=== PATIENT | female | born 1965 | race Caucasian/White ===

== ENCOUNTER 2023-10-09 14:01 | Day surgery (SDC) | payer OTHER, SELFPAY ==
[2023-10-09] VITALS (18 sets, daily range): BP systolic 96–159; BP diastolic 48–101; BMI 27.7
--- NOTE | 2023-10-09 07:37 | ED.GENMED ---
History of Present Illness
General
Chief Complaint: Abdominal Pain
Source: patient and spouse
Exam Limitations: none
Time Seen by Provider: 10/09/23 07:28
Travel History
Have you had any contact with someone who has COVID-19?: No
Do you have any symptoms of coronavirus? Fever > 100 degrees, chills, cough, shortness of breath, sore throat, loss of taste or smell, muscle aches, or headache?: No
History of Present Illness
History of Present Illness:
58-year-old female complaining of relatively sudden onset of upper abdominal pain with radiation to the mid back. Started yesterday evening. Patient feels like it may have started after doing some lifting. She is concerned for a hiatal hernia
issue. She is never had pain like this before. Some nausea. No fever no chest pain or shortness of breath. Symptoms are moderate in nature continuous.
Past History
Past History
ED Past Medical History: HTN and Seizures; Negative Arrthythmia, Asthma, CAD, Cancer, CHF, COPD, CVA, GERD or Hypercholesterolemia
ED Past Surgical History: Gynecological and Other (Hernia surgery x2); Negative Cardiac
Patient has exhibited threatening behavior?: No
Social History
Tobacco: Smoker
Alcohol: None
Drug: None
Personal:
Living: with family
Employment: Employed
Family History
Family History: Hypertension and CAD; Negative Sudden
Review of Systems
Review of Systems
All Other Systems: Not applicable
Constitutional: Denies fever
Respiratory: Reports no symptoms
Cardiac: Reports no symptoms
Phy Exam
Physical Exam
Physical Exam:
GENERAL: Alert and oriented in no apparent distress
EYE: Orbits normal.
NECK: Supple
CARDIAC: Regular rate and rhythm without any obvious murmurs.
LUNGS: Clear breath sounds,normal
ABDOMEN: Soft, bowel sounds present. Mild epigastric tenderness mild to moderate right upper quadrant tenderness and mild right lower quadrant tenderness. No CVA tenderness. No rebound or guarding no mass or hernia
NEUROLOGICAL: Alert and oriented , grossly non-focal
SKIN: Warm and dry, no rash or lesion, no discoloration, skin intact.
MUSCULOSKELETAL: No edema,no deformity.Good color
PSYCH: Normal and appropriate interaction.
Course
Orders/Labs/Results
Orders:
Orders
10/09/23 07:08
EKG [Electrocardiogram (*1)] Urgent
Reason for Study: Abdominal Pain
EKG- Treatment ONCE
10/09/23 07:35
CT Abd/pel W Iv And Oral Contr Urgent
Comment:
Reason For Exam: Epigastric right upper quadrant and right lower qu
Cardiac Monitoring- Treatment ONCE
IV Insert/Care/Rem.- Treatment PRN
0.9% Sodium Chloride 1000 ml [Nss] 1,000 ml IV BOLUS
HYDROmorphone [Dilaudid] 0.5 mg IV NOW STA
Iohexol [Omnipaque] See Protocol PO NOW STA
Ondansetron Injectable [Zofran] 4 mg IV NOW STA
Pulse Ox/cont/shift [RESP] Stat
Quantity: 1
10/09/23 07:36
US Abdomen Complete/Upper Urgent
Reason For Exam: Right upper quadrant abdominal pain. Evaluate gal
10/09/23 08:02
Complete Blood Count/With Diff Urgent
Comprehensive Metabolic Panel Urgent
Lipase Urgent
Troponin I Urgent
10/09/23 Lunch
NPO
Allow oral meds: Yes
Allow clear liquids: No
10/09/23 10:15
HYDROmorphone [Dilaudid] 0.5 mg IV NOW STA
10/09/23 10:16
HYDROmorphone [Dilaudid] 0.5 mg .ROUTE .STK-MED ONE
HYDROmorphone [Dilaudid] 0.5 mg .ROUTE .STK-MED ONE
10/09/23 13:05
Admit Patient As Directed
Co-Sign Provider:
Level of Care: Post Proc/Surg Recovery
Assign to:: Medical/Surgical
Physician / Group: [facility]/General surgery
Diagnosis: Appendicitis
Reason for Overnight Stay: Standard of Care
Code Status As Directed
Resuscitation Status: Full Code
Acetaminophen [Tylenol] 650 mg PO Q4HPRN PRN
HYDROmorphone [Dilaudid] 1 mg IV Q4HPRN PRN
Ketorolac [Toradol] 10 mg IV Q6HPRN PRN
Ondansetron Injectable [Zofran] 4 mg IV Q6HPRN PRN
Activity As Directed
Activity Level: Out of Bed-Early Mobility
Intake/ Output As Directed
Frequency: Per unit guidelines
Pneumatic Compression Sleeves As Directed
Type: Knee high
Vital Signs As Directed
Frequency: Per unit guidelines
DX Deep Vein Thrombosis Video Routine
10/09/23 13:15
0.9% Sodium Chloride 1000 ml [Nss] 1,000 ml IV 80 mls/hr
10/09/23 14:00
Piperacillin/Tazo 3.375 Gram [Zosyn] 3.375 gram in 50 ml IV Q6H
Abnormal Lab Results
10/09/23
08:02
WBC 15.6 H 10^3/uL
(4.8-10.8)
Abs Immat Gran (auto) 0.1 H 10^3/uL
(0-0.05)
Absolute Neuts (auto) 13.1 H 10^3/uL
(1.4-6.5)
Absolute Monos (auto) 0.9 H 10^3/uL
(0.1-0.6)
Neutrophils % 83.7 H %
(42.2-75.2)
Lymphocytes % 9.7 L %
(20.5-51.1)
BUN 27 H mg/dl
(7-17)
Glucose 151 H mg/dl
(70-99)
Alkaline Phosphatase 139 H U/L
(38-126)
10/09/23 08:02
10/09/23 08:02
Vital Signs
Initial and Last Documented VS:
Initial Vital Signs
Temp Pulse Resp BP Pulse Ox
98.4 F 110 18 159/101 96
10/09/23 07:01 10/09/23 07:01 10/09/23 07:01 10/09/23 07:01 10/09/23 07:01
Last Documented Vital Signs
Temp Pulse Resp BP Pulse Ox
98.4 F 96 18 125/79 98
10/09/23 07:01 10/09/23 13:30 10/09/23 12:03 10/09/23 13:00 10/09/23 13:43
MDM/Problems Addressed
Differential Diagnosis Includes:
Relatively sudden onset of upper abdominal pain to the back. Differential would include gastritis/ulcer/gallbladder. There is some right lower quadrant tenderness. Appendicitis is also in the differential. Workup in progress
*Radiology
Radiology exam reviewed: radiology read reviewed (Appendicitis/colitis)
*Pulse Oximetry
Patient hypoxic: no
*Critical Care Note
Total Time (30-74mins, 75-104mins- exclusive of procedures): Not Applicable
Data Reviewed
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 Within normal limits. Ultrasound CT last year all negative)
ED Attending Note
-
Portions of this chart may have been created with voice recognition software.� Occasional wrong word or��sound alike� substitutions may have occurred due to the inherent limitations of voice recognition software.
Discharge Plan
Departure
Patient Disposition: Admit
Date of Disposition: 10/09/23
Time of Disposition: 12:04
Presentation/result/management discussed w/ accepting MD/DO: Surgery
Discharge Problem:
Appendicitis, Colitis
Interventions
Interventions:
*Risk Screen - Suicide Last Done: 10/09/23 08:06
*General Assessment Last Done: 10/09/23 08:06
*Neglect/Abuse Screening Last Done: 10/09/23 08:06
*ED COVID-19 Vaccine History Last Done: 10/09/23 07:04
*Nursing Disposition Last Done: 10/09/23 13:54
WF-Avxhak-Qdsveqnsbd Assessment Last Done: 10/09/23 08:07
Discharge Date and Time
Discharge Date/Time: 10/09/23 13:54
[2023-10-09] MEDS: NSS 1000 IV ×2 (08:04→13:25)
[2023-10-09] MEDS: ZOFRAN 4 MG IV ×2 (08:05→13:41)
[2023-10-09 08:08] LABS: % Basophils 0.4 % (0-2); % Eosinophils 0.2 % (0-6); % Immature Granulocytes 0.4 % (0-0.5); % Lymphocytes 9.7 % (20.5-51.1); % Monocytes 5.6 % (1.7-9.3); % Neutrophils 83.7 % (42.2-75.2); Absolute Basophils 0.1 10^3/uL (0-0.2); Absolute Immature Granulocytes 0.1 10^3/uL (0-0.05); Absolute Lymphocytes 1.5 10^3/uL (1.2-3.4); Absolute Monocytes 0.9 10^3/uL (0.1-0.6); Absolute Neutrophils 13.1 10^3/uL (1.4-6.5); Hematocrit 44.4 % (37.0-47.0); Hemoglobin 15.2 g/dL (12.0-16.0); Mean Corp Hgb Conc. 34.2 g/dL (33.0-37.0); Mean Corpuscular Hgb 29.9 pg (27.0-31.0); Mean Corpuscular Volume 87.2 fL (81.0-99.0); Mean Platelet Volume 10.4 fL (7.4-10.4); Nucleated Red Blood Cells % 0 %; Platelet Count 211 10^3/uL (130-400); Red Blood Cell Count 5.09 10^6/uL (4.20-5.40); Red Cell Dist. Width 13.2 % (11.5-14.5); White Blood Cell Count 15.6 10^3/uL (4.8-10.8)
[2023-10-09] MEDS: DILAUDID 0.5 MG IV ×2 (08:10→10:19)
[2023-10-09] MEDS: OMNIPAQUE 50 ML PO (08:14)
[2023-10-09 08:25] LABS: ALT (SGPT) 32 U/L (0-35); AST (SGOT) 26 U/L (14-36); Albumin 4.4 g/dl (3.5-5.0); Alkaline Phosphatase 139 U/L (38-126); Blood Urea Nitrogen 27 mg/dl (7-17); Carbon Dioxide 29 mmol/L (22-30); Chloride 104 mmol/L (98-107); Estimated Creatinine Clearance 76 ml/min; Glucose 151 mg/dl (70-99); Lipase 69 U/L (23-300); Potassium 3.7 mmol/L (3.5-5.1); Sodium 143 mmol/L (135-145); Total Bilirubin 0.7 mg/dl (0.2-1.3); Total Protein 7.2 g/dl (6.3-8.2); eGFR > 60.00
[2023-10-09 08:31] LABS: Troponin I < 0.012 ng/ml
--- NOTE | 2023-10-09 12:45 | HPS.HSE ---
Addendum entered and electronically signed by Philip Coelho MD 10/09/23 14:49:
Patient seen and examined. Agree with assessment plan as documented below.
Patient is a 58 yo F with a PMH notable for seizures, GERD, HTN, s/p , s/p partial hysterectomy with vaginal sling in 2002 c/b incisional hernia s/p open ventral incisional hernia repair with focal patch by Dr. Field in 2002, s/p bladder
sling procedure. Ms. Julian presents with 24 hours of generalized and RLQ abdominal pain. She states that her symptoms began yesterday. She describes a general discomfort within her abdomen primarily localized to the umbilicus, though worse in the
RLQ with palpation. Associated nausea and vomiting. No fevers, reports chills. Issues with constipation, denies any bloody or loose stools. Family history notable for colon cancer, last colonoscopy in 2010 notable for diverticulosis, and 3
hyperplastic polyps within the rectum.
Gen: NAD
Abd: soft, tender to palpation in RLQ, mild distension, non-peritoneal, prior incisions well healed
Labs and imaging were reviewed
Patient is a 58 yo F p/w acute appendicitis
The natural history and pathophysiology of appendicitis was discussed. Labs and CT scan imaging were reviewed. Options for management including medical management with antibiotics versus surgical management with appendectomy were considered and
discussed. The pros and cons of both approaches was discussed. Specifically, we discussed failure of medical management and future episodes of appendicitis versus surgical risks. We discussed that she has had increased risk for failure of medical
management given her appendicoliths. Recommend and plan for appendectomy.
Plan for a laparoscopic appendectomy. The procedure itself, as well as the risks, benefits, and alternatives was discussed. Specifically, we discussed the risks of bleeding, infection, injury to surrounding structures (bowel, bladder), staple line
leak, need for open procedure. Typical postprocedural recovery was discussed. All questions answered. Consent signed.
-- Laparoscopic appendectomy
-- NPO, IVF
-- Abx: Zosyn
Original Note:
Family Physician
-
Family Physician: Len Rg
Chief Complaint
-
abdominal pain
History of Present Illness
58 yo female with h/o , HELIO with vaginal sling, bladder sling for recurrent prolapse, incisional hernia repair with mesh, BL inguinal hernia repairs and seizures who presents with abdominal pain which began acutely yesterday evening
periumbilically with nausea and vomiting. Pain is generalized throughout and radiating into her back. On exam, she is significantly focally tender to the RLQ with pain in the RLQ when all other mathur are palpated. She denies active nausea and is
somewhat more comfortable after receiving Dilaudid although she notes pain is still present. She denies fevers but has had some chills. She denies diarrhea. Last BM was 2 days ago.
Medical History
Past Medical History
Past Medical History: Reports GERD, HTN, Seizures and Other (hiatal hernia)
Past Surgical History: Reports , Gynocological (HELIO with vaginal sling 2002), Urological (bladder sling (for recurrence after 2002 procedure)) and Other (BL inguinal hernia repairs, Incisional hernia repair 2002 along Pfannenstiel incision
(Kugel patch))
Additional Past Surgical History:
Last colonoscopy 2011 years with polyps, diverticulosis
Social History
Tobacco: Former Smoker
Alcohol: None
Personal:
Living: With Family
Family History
Family History: Cancer (father)
Allergies / Home Medications
Allergies reflects when Allergies were last updated in [facility].
Home Medications with original date entered in [facility]
Allergy/Medication List:
Patient Allergies
Allergy/AdvReac Type Severity Reaction Status Date / Time
adhesive tape Allergy Rash Verified 10/09/23 07:53
Benzodiazepines Allergy Unknown Verified 10/09/23 07:53
clonazepam Allergy Pharmacy Verified 10/09/23 07:53
to Review
Hydantoins Allergy Unknown Verified 10/09/23 07:53
phenytoin Allergy Rash Verified 10/09/23 07:53
Sulfa (Sulfonamide Allergy Rash Verified 10/09/23 07:53
Antibiotics)
sulfasalazine Allergy Unknown Verified 10/09/23 07:53
�Medication �Instructions �Recorded �Confirmed �Type
atorvastatin 10 mg tablet 10 mg PO DAILY 10/09/23 10/09/23 History
calcium carbonate (Tums) 200 mg PO QID PRN gi upset 10/09/23 10/09/23 History
hydrochlorothiazide 25 mg tablet 25 mg PO DAILY 10/09/23 10/09/23 History
metoprolol tartrate 25 mg tablet 25 mg PO BID 10/09/23 10/09/23 History
multivitamin 1 tab PO DAILY 10/09/23 10/09/23 History
omeprazole 20 mg capsule,delayed 20 mg PO BID 10/09/23 10/09/23 History
release
topiramate 200 mg capsule,extended 200 mg PO DAILY 10/09/23 10/09/23 History
release 24 hr
Review of Systems
-
History Source: Patient
A 12 point ROS was completed and negative except as noted: Yes
Physical Exam
Vital Signs
Vital Signs
Temp Pulse Resp BP Pulse Ox
98.4 F 88 18 118/84 97
10/09/23 07:01 10/09/23 12:03 10/09/23 12:03 10/09/23 12:03 10/09/23 12:03
Physical Exam
General: No Apparent Distress; No Comfortable
HEENT: NormoCephalic and Moist mucous membranes
Respiratory: Non Labored Respirations
GI: Soft, Non Distended and Tender (RLQ)
Skin: Warm
Neuro: Awake, Alert and AO x 3
Psych: Calm
Laboratory Results
-
10/09/23 08:02
10/09/23 08:02
Laboratory Results
Total Bilirubin 0.7 mg/dl (0.2-1.3) 10/09/23 08:02
AST 26 U/L (14-36) 10/09/23 08:02
ALT 32 U/L (0-35) 10/09/23 08:02
Alkaline Phosphatase 139 U/L (38-126) H 10/09/23 08:02
Troponin I < 0.012 ng/ml 10/09/23 08:02
Lipase 69 U/L (23-300) 10/09/23 08:02
Impression/Plan
-
IMPRESSION:
58 yo female h/o , HELIO with vaginal sling, bladder sling for recurrent prolapse, incisional hernia repair with mesh, BL inguinal hernia repairs and seizures who presents with abdominal pain which began acutely yesterday evening and is
localizing to the RLQ. +leukocytosis present. Normal US. CT abd/pelvis and exam consistent with appendicitis with appendicolith. Right colon wall thickening also present on CT.
PLAN:
Keep NPO for laparoscopic appendectomy later today
Start IV zosyn
Analgesics/Antiemetics prn
IVF while NPO
Will need outpatient colonoscopy later this summer for work up of right colon abnormality, patient was planning already.
--- NOTE | 2023-10-09 12:48 | W.SUR.PREOP ---
Pre-Operative Surgical Note
-
I have examined this patient prior to the performance of the scheduled procedure.
The patient's condition is unchanged from the time of the current History and
Physical and the patient is able to undergo the scheduled procedure.
[2023-10-09] MEDS: ZOSYN 50 IV ×2 (13:26→19:12)
[2023-10-09] MEDS: DILAUDID 1 MG IV (13:41)
[2023-10-09] MEDS: TOPAMAX 200 MG PO (14:37)
--- NOTE | 2023-10-09 16:05 | W.IMMPOSTOP ---
Addendum entered and electronically signed by Philip Coelho MD 10/09/23 16:12:
[facility]# [id number]
Original Note:
Surgical Immed Post Op Note
-
Primary Surgeon: Laquita
Assisting Surgeon: None
Pre-op Diagnosis: Acute appendicitis
Post-op Diagnosis: Acute appendicitis
Procedure Performed: Laparoscopic appendectomy
Anesthesia Type: General
Specimen / Cultures:
1. Appendix
Estimated Blood Loss: 3 cc
Complications: None
Operative Findings:
1. Minimal omental adhesions to prior mesh, no recurrence
2. Appendix acutely inflamed, non-perforated
3. Mesentery taken with Ligasure, base with faustin load stapler
[2023-10-09] MEDS: PROTONIX 40 MG PO (19:12)
[2023-10-09] MEDS: TOPAMAX 100 MG PO (19:12)
[2023-10-09] MEDS: LOPRESSOR 25 MG PO (19:12)
--- NOTE | 2023-10-09 19:55 | PTCARENOTE ---
pt rec'd IV abt/ po meds and discharge instructions reviewed /all belongings taken by spouse and RAC IV pulled, tolerated well, vs wnl. Pt discharged via W/C propelled by staff.
== END 2023-10-09 20:59 | disposition home or self-care (01) ==
LOC: PACU 14:01
PROVIDERS: ATTENDING PHYSICIAN Surgery; EMERGENCY PHYSICIAN Emergency Medicine; FAMILY PHYSICIAN Family Medicine
PROC: 0DTJ0ZZ Resection of Appendix, Open Approach (ICD-10-PCS; 2023-10-09)
DX: K35.890 Other acute appendicitis without perforation or gangrene (principal); K21.9 Gastro-esophageal reflux disease without esophagitis; I10 Essential (primary) hypertension; Z86.010 Personal history of colon polyps; Z90.711 Acquired absence of uterus with remaining cervical stump; Z88.2 Allergy status to sulfonamides; Z87.891 Personal history of nicotine dependence; G40.909 Epilepsy, unspecified, not intractable, without status epilepticus
CPT/HCPCS: 44970; 88304; 74177; 76700; 80053; 83690; 84484; 85025; 93005; 94760; 96361; 96365; 96375; 96376; 99285; Q9967

== ENCOUNTER → 2024-05-22 10:33 | Outpatient (REF) | payer OTHER, SELFPAY | LOC: HWCARD 10:33 | PROVIDERS: ATTENDING PHYSICIAN Student in an Organized Health Care Education/Training Program; FAMILY PHYSICIAN Family Medicine | DX: Z01.818 Encounter for other preprocedural examination (principal) | CPT/HCPCS: 93005 ==

== ENCOUNTER → 2024-08-09 12:54 | Outpatient (REF) | payer OTHER, SELFPAY | LOC: RAD 12:54 | PROVIDERS: ATTENDING PHYSICIAN Student in an Organized Health Care Education/Training Program; FAMILY PHYSICIAN Family Medicine | DX: M79.662 Pain in left lower leg (principal) | CPT/HCPCS: 93971 ==

== ENCOUNTER 2024-09-05 18:02 | Emergency (ER) | payer OTHER, SELFPAY ==
[2024-09-05 18:06] VITALS: BP 145/99
[2024-09-05 18:28] LABS: % Basophils 0.4 % (0-2); % Eosinophils 0.2 % (0-6); % Immature Granulocytes 0.4 % (0-0.5); % Lymphocytes 20.5 % (20.5-51.1); % Monocytes 9.4 % (1.7-9.3); % Neutrophils 69.1 % (42.2-75.2); Absolute Basophils 0.1 10^3/uL (0-0.2); Absolute Immature Granulocytes 0.1 10^3/uL (0-0.05); Absolute Lymphocytes 2.5 10^3/uL (1.2-3.4); Absolute Monocytes 1.2 10^3/uL (0.1-0.6); Absolute Neutrophils 8.5 10^3/uL (1.4-6.5); Hematocrit 49.9 % (37.0-47.0); Hemoglobin 17.6 g/dL (12.0-16.0); Mean Corp Hgb Conc. 35.3 g/dL (33.0-37.0); Mean Corpuscular Hgb 30.6 pg (27.0-31.0); Mean Corpuscular Volume 86.8 fL (81.0-99.0); Mean Platelet Volume 9.8 fL (7.4-10.4); Nucleated Red Blood Cells % 0 %; Platelet Count 309 10^3/uL (130-400); Red Blood Cell Count 5.75 10^6/uL (4.20-5.40); Red Cell Dist. Width 12.7 % (11.5-14.5); White Blood Cell Count 12.2 10^3/uL (4.8-10.8)
[2024-09-05 18:41] LABS: ALT (SGPT) 46 U/L (0-35); AST (SGOT) 26 U/L (14-36); Albumin 4.8 g/dl (3.5-5.0); Alkaline Phosphatase 129 U/L (38-126); Blood Urea Nitrogen 17 mg/dl (7-17); Calcium 10.5 mg/dl (8.4-10.2); Carbon Dioxide 27 mmol/L (22-30); Chloride 98 mmol/L (98-107); Glucose 138 mg/dl (70-99); Lipase 95 U/L (23-300); Sodium 140 mmol/L (135-145); Total Bilirubin 0.9 mg/dl (0.2-1.3); Total Protein 7.8 g/dl (6.3-8.2); eGFR > 60.00
--- NOTE | 2024-09-05 19:16 | ED.GENMED ---
History of Present Illness
General
Chief Complaint: Abdominal Symptoms
Source: patient
Exam Limitations: none
Time Seen by Provider: 09/05/24 19:05
Nursing documentation reviewed up to this point in time: agreed with
History of Present Illness
History of Present Illness:
59 yr old presents to the ER for evaluation nausea vomiting. Patient reports 2 weeks ago she increased her semaglutide. In addition she reports on Wednesday 2 days ago she was diagnosed with UTI(had dysuria and hematuria )at patient care and
started on Macrobid. Since then she has been vomiting but denies any fevers.
She denies any back pain.
Past History
Past History
ED Past Medical History: HTN and Seizures; Negative Arrthythmia, Asthma, CAD, Cancer, CHF, COPD, CVA, GERD or Hypercholesterolemia
ED Past Surgical History: Gynecological and Other (Hernia surgery x2); Negative Cardiac
Patient has exhibited threatening behavior?: No
Social History
Tobacco: Smoker
Alcohol: None
Drug: None
Personal:
Living: with family
Employment: Employed
Family History
Family History: Hypertension and CAD; Negative Sudden
Review of Systems
Review of Systems
Allergies reviewed?: Yes
All Other Systems: ROS reviewed and negative except as documented in HPI and ROS
Constitutional: Reports no symptoms; Denies fever, fatigue or chills
Respiratory: Reports no symptoms
Cardiac: Reports no symptoms
ABD/GI: Reports nausea and vomiting; Denies abdominal pain
: Reports dysuria and bleeding
Musculoskeletal: Reports no symptoms; Denies back pain
Skin: Reports no symptoms
Neurological: Reports no symptoms
Psychiatric: Reports no symptoms
Phy Exam
General Physical Exam
General Presentation: no apparent distress
General age: appears stated age
General Skin: warm and dry
General Habitus: normal
General Mental: alert
General Hydration: appears well hydrated
Cardiovascular Exam
Cardiovascular Exam: regular rate/rhythm, no murmur and normal peripheral pulses
Pulmonary Exam
Pulmonary Exam: lungs clear and no respiratory distress
Neurological Exam
Neurological Exam: alert and oriented x3
Musculoskeletal Exam
Musculoskeletal Exam: full ROM
Skin Exam
Skin Exam: normal color and warm/dry
Psychiatric Exam
Psychiatric Exam: normal mood/affect
Course
Orders/Labs/Results
Orders:
Orders
09/05/24 18:14
Complete Blood Count/With Diff Urgent
Comprehensive Metabolic Panel Urgent
Lipase Urgent
09/05/24 19:34
Ondansetron Injectable [Zofran] 4 mg IV NOW STA
09/05/24 19:35
CT Abd/Pel (IV only)-DH only Urgent
Comment:
Reason For Exam: left flank pain + UTI
0.9% Sodium Chloride 1000 ml [Nss] 1,000 ml IV BOLUS
09/05/24 23:03
Urinalysis Reflex To Culture Urgent
Date Specimen was Collected: 09/05/24
Time Specimen was Collected: 20:29
Urine Microscopic Reflex Cult Urgent
Urine Culture Urgent
LORRAINE Source: U
Specimen Description:
Date Specimen was Collected: 09/05/24
Time Specimen was Collected: 20:29
09/05/24 23:26
0.9% Sodium Chloride 1000 ml [Nss] 1,000 ml IV BOLUS
Ondansetron Injectable [Zofran] 4 mg IV NOW STA
09/06/24 00:35
CefTRIAXone [Rocephin] 1,000 mg IV NOW STA
Potassium Chloride [KCl] 40 meq PO NOW STA
Abnormal Lab Results
09/05/24 09/05/24
18:14 23:03
WBC 12.2 H 10^3/uL
(4.8-10.8)
RBC 5.75 H 10^6/uL
(4.20-5.40)
Hgb 17.6 H g/dL
(12.0-16.0)
Hct 49.9 H %
(37.0-47.0)
Abs Immat Gran (auto) 0.1 H 10^3/uL
(0-0.05)
Absolute Neuts (auto) 8.5 H 10^3/uL
(1.4-6.5)
Absolute Monos (auto) 1.2 H 10^3/uL
(0.1-0.6)
Monocytes % 9.4 H %
(1.7-9.3)
Potassium 3.0 L mmol/L
(3.5-5.1)
Glucose 138 H mg/dl
(70-99)
Calcium 10.5 H mg/dl
(8.4-10.2)
ALT 46 H U/L
(0-35)
Alkaline Phosphatase 129 H U/L
(38-126)
Urine Ketones 3+ A
(Negative)
Ur Occult Blood Reflex 3+ A
(Negative)
Urine Nitrite (Reflex) Positive A
(Negative)
Urine Bilirubin 1+ A
(Negative)
Leukocyte Esterase Rfl 1+ A
(Negative)
Urine RBC 3-6 A /HPF
(0-2)
Urine WBC (Reflex) 16-20 A /HPF
(0-5)
Urine Bacteria (Reflex) Few A
(Negative)
Urine Albumin (Reflex) 2+ A
(Neg - Trace)
09/05/24 18:14
09/05/24 18:14
Vital Signs
Initial and Last Documented VS:
Initial Vital Signs
Temp Pulse Resp BP Pulse Ox
99.3 F 125 18 145/99 98
09/05/24 18:06 09/05/24 18:06 09/05/24 18:06 09/05/24 18:06 09/05/24 18:06
Last Documented Vital Signs
Temp Pulse Resp BP Pulse Ox
99.3 F 96 20 131/78 97
09/05/24 18:06 09/05/24 23:12 09/05/24 23:12 09/05/24 23:12 09/05/24 23:12
MDM/Problems Addressed
MDM/Problems Addressed:
Patient is a 59-year-old female who presented with nausea and vomiting. Recently diagnosed with UTI 2 days ago on Macrobid. She denies any fevers or back pain. In addition to UTI she did recently 2 weeks ago increase her semaglutide patient
presented nauseous and vomiting however abdomen soft and nontender. Patient denies any fevers at home. Temp is 99.3. White count is minimally elevated 12.2.
Patient's renal function is normal her potassium is mildly low at 3.0.
Patient's urinalysis shows 16-20 white blood cells and nitrates and trace leukocytes. CAT scan was done which is negative for renal or ureteral calculus no bladder calculus or hydronephrosis incidentally she is mild to moderate sliding hiatal
hernia no other acute inflammatory pathology in the abdomen.
Patient was given fluids and Zofran feeling better tolerating water she was given 1 dose of oral potassium as her potassium was low Case discussed ED physician will change Macrobid to cefdinir patient was given 1 dose of Rocephin here in the ER.
Vomiting may be from UTI no CT findings of pyelonephritis on CAT scan however will treat again as discussed with different antibiotic.
In addition is possible vomiting is also related to increasing her semaglutide. Will have her stop taking this and follow-up with her family doctor for further instructions.
*Critical Care Note
Total Time (30-74mins, 75-104mins- exclusive of procedures): Not Applicable
ED Attending Note
-
Portions of this chart may have been created with voice recognition software.� Occasional wrong word or��sound alike� substitutions may have occurred due to the inherent limitations of voice recognition software.
Discharge Plan
Departure
Patient Disposition: Home (Routine Discharge)
Date of Disposition: 09/06/24
Time of Disposition: 00:42
Patient with high blood pressure during this ER visit?: Yes
Covid-19: Not Applicable
Discharge Problem:
UTI (urinary tract infection), Nausea and vomiting
Instructions: Urinary tract infections in adults, Nausea and Vomiting, Adult (DC), BLOOD PRESSURE
Prescriptions:
New
cefdinir 300 mg capsule
300 mg PO BID Qty: 14 0RF
ondansetron 4 mg tablet,disintegrating
4 mg PO Q8H PRN (Reason: nausea and vomiting) Qty: 10 0RF
No Action
atorvastatin 10 mg Tablet
10 mg PO DAILY
omeprazole 20 mg Capsule,Delayed Release(Dr/Ec)
40 mg PO AMHS PRN (Reason: reflux)
hydrochlorothiazide 25 mg Tablet
25 mg PO DAILY
metoprolol tartrate 25 mg Tablet
25 mg PO BID
topiramate 200 mg Capsule,Extended Release 24hr
200 mg PO DAILY
calcium carbonate [Tums] 200 mg calcium (500 mg) Tablet,Chewable
200 mg PO QID PRN (Reason: gi upset)
acetaminophen 325 mg tablet
650 mg PO Q4HPRN PRN (Reason: mild pain) Qty: 1 0RF
ibuprofen 200 mg tablet
400 - 600 mg PO Q6HPRN PRN (Reason: moderate pain) Qty: 1 0RF
famotidine [Pepcid] 20 mg Tablet
20 mg PO HS
Referrals:
Doner,Len, DO [Family Provider] -
Activity Restrictions/Additional Instructions:
As discussed you may stop Macrobid and start new antibiotic, cefdinir. This medication was sent to your pharmacy.
Start this antibiotic tomorrow as you were given 1 dose of IV antibiotics here in the ER
In addition you may take Zofran as needed for nausea.
Clear fluids for the next 24 hours followed by bland solid foods as tolerated
Please follow-up closely with your family doctor for reevaluation of your symptoms. Call to make an appointment in the next 2 days. Return if any worsening of symptoms of increased vomiting fever chills , abdominal pain back pain or any further
concerns
Please stop your semaglutide until follow-up with your family doctor
In addition your potassium was low in the ER and you were given 1 dose of oral potassium .
Please have your potassium level rechecked in the next week by your family doctor; once you start to resume solid foods high in potassium such as green leafy vegetables potatoes orange juice
Return if any worsening of symptoms
Interventions
Interventions:
*Risk Screen - Suicide Last Done: 09/05/24 18:06
*General Assessment Last Done: 09/05/24 18:06
*Neglect/Abuse Screening Last Done: 09/05/24 18:06
*ED COVID-19 Vaccine History Last Done: 09/05/24 18:06
CL-Oiawvk-Ejnwowsqwo Assessment Last Done: 09/05/24 20:29
Discharge Date and Time
Print Language: CENTRAL AFR[place]
[2024-09-05 20:01] VITALS: BMI 26.2
[2024-09-05 20:15] VITALS: BP 138/91
[2024-09-05] MEDS: ZOFRAN 4 MG IV ×2 (20:17→23:29)
[2024-09-05] MEDS: NSS 1000 IV ×2 (20:17→23:27)
[2024-09-05 21:00] VITALS: BP 124/69
[2024-09-05 22:04] VITALS: BP 145/97
[2024-09-05 23:07] VITALS: BP 131/78
[2024-09-05 23:10] LABS: Urine Albumin 2+ (Neg - Trace); Urine Bilirubin 1+ (Negative); Urine Character Clear (Clear); Urine Color Yellow; Urine Glucose Negative (Negative); Urine Ketone 3+ (Negative); Urine Leukocyte 1+ (Negative); Urine Nitrite Positive (Negative); Urine Occult Blood 3+ (Negative); Urine Urobilinogen 1+ (Neg - 1+)
[2024-09-05 23:12] VITALS: BP 131/78
[2024-09-05 23:23] LABS: Urine Bacteria Few (Negative); Urine Squamous Cell >30 /LPF (Few); Urine White Cell 16-20 /HPF (0-5)
[2024-09-06] MEDS: KCL 40 MEQ PO (00:41)
[2024-09-06] MEDS: ROCEPHIN 1000 MG IV (00:42)
[2024-09-06 00:57] VITALS: BP 132/87
== END 2024-09-06 01:20 | disposition home or self-care (01) ==
LOC: EMR 18:02
PROVIDERS: Emergency Medicine; Nurse Practitioner; EMERGENCY PHYSICIAN Student in an Organized Health Care Education/Training Program; FAMILY PHYSICIAN Family Medicine
DX: N39.0 Urinary tract infection, site not specified (principal); R11.2 Nausea with vomiting, unspecified; I10 Essential (primary) hypertension; F17.200 Nicotine dependence, unspecified, uncomplicated
CPT/HCPCS: 99285; 96374; 96375; 96361 ×4; 96376; 74177; 80053; 81003; 81015; 83690; 85025; 87086; Q9967